=== PATIENT | male | born 2000 | race Caucasian/White ===

== ENCOUNTER → 2019-01-28 | Outpatient (CLI) | payer OTHER ==
--- NOTE | 2019-01-28 16:30 | REP ---
LEFT KNEE, FIVE VIEWS: HISTORY: Injury. There is no acute fracture or dislocation. The joint spaces are normal in appearance. IMPRESSION: There is no acute fracture or dislocation. Electronically Signed by Gilberto Goyal MD 01/28/2019 05:16 P
== END ==
LOC: M LRY 15:37
PROVIDERS: ATTEND Physician Assistant
DX: S89.92XA Unspecified injury of left lower leg, initial encounter (principal); X58.XXXA Exposure to other specified factors, initial encounter; Z92.89 Personal history of other medical treatment

== ENCOUNTER 2019-03-26 06:33 | Emergency (ER) | payer OTHER ==
[~2019-03-26] VITALS: Ht 172.7 cm; Wt 77.3 kg
[2019-03-26] MEDS ORDERED: NS 1,000 ML IV ONE (07:00)
--- NOTE | 2019-03-26 07:31 | REPVR ---
EXAM: CT Head Without Contrast EXAM DATE/TIME: 03/26/2019 7:12 AM CLINICAL HISTORY: 18 years old, male; Pain; Other: Headache, tingling in hands, weakness; Additional info: Headache; Reported tingling in hands; Reported weakness TECHNIQUE: Imaging protocol: Axial computed tomography images of the head/brain without contrast. Radiation optimization: All CT scans at this facility use at least one of these dose optimization techniques: automated exposure control; mA and/or kV adjustment per patient size (includes targeted exams where dose is matched to clinical indication); or iterative reconstruction. COMPARISON: No relevant prior studies available. FINDINGS: Brain: Normal. No hemorrhage. No significant white matter disease. No edema. Ventricles: Normal. No ventriculomegaly. Bones/joints: Unremarkable. No acute fracture. Sinuses: Visualized sinuses are unremarkable. No acute sinusitis. Mastoid air cells: Visualized mastoid air cells are unremarkable. No mastoid effusion. Soft tissues: Unremarkable. IMPRESSION: No acute intracranial abnormality. Electronically signed by: Anthony Phillips On 03/26/2019 07:31:26 AM
[2019-03-26 07:45] VITALS: BP 125/60
[2019-03-26 07:46] LABS: BASO % 0.3 % (0.0-1.0); EOS # 0.1 10^3/uL (0.0-0.50); EOS % 1.6 % (0.0-3.0); HEMATOCRIT 43.6 % (42.0-52.0); HEMOGLOBIN 15.2 g/dl (13.5-17.5); LYMPH # 1.4 10^3/uL (1.5-6.5); LYMPH % 20.2 % (24.0-44.0); MEAN CORPUSCULAR HEMOGLOBIN 29.9 pg (27.0-33.0); MEAN CORPUSCULAR HGB CONC 34.9 g/dl (32.0-36.5); MEAN CORPUSCULAR VOLUME 85.8 fl (80.0-96.0); MONO # 0.6 10^3/uL (0.0-0.8); MONO % 8.9 % (0.0-5.0); NEUTROPHILS # 4.7 10^3/uL (1.8-7.7); NEUTROPHILS % 68.9 % (36.0-66.0); PLATELET COUNT, AUTOMATED 217 10^3/uL (150-450); RED BLOOD COUNT 5.08 10^6/uL (4.30-6.10); WHITE BLOOD COUNT 6.9 10^3/uL (4.0-10.0)
--- NOTE | 2019-03-26 07:57 | ECGEPIP ---
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
--- NOTE | 2019-03-26 07:59 | REP ---
Clinical: Acute chest pain . Comparison: None . Technique: PA and lateral. Findings: The mediastinum and cardiac silhouette are normal. The lung dahl are clear and without acute consolidation, effusion, or pneumothorax. The skeletal structures are intact and normal. Impression: 1. No acute cardiopulmonary process. Electronically Signed by Silvano Hunt MD 03/26/2019 07:51 A
[2019-03-26 08:22] LABS: ALBUMIN 4.1 GM/DL (3.2-5.2); ALT/SGPT 78 U/L (12-78); BILIRUBIN,DIRECT 0.2 MG/DL (0.0-0.2); BILIRUBIN,TOTAL 0.6 MG/DL (0.2-1.0); BLOOD UREA NITROGEN 11 MG/DL (7-18); CALCIUM LEVEL 8.8 MG/DL (8.5-10.1); CARBON DIOXIDE LEVEL 27 MEQ/L (21-32); CHLORIDE LEVEL 107 MEQ/L (98-107); CPK CREATINE PHOSPHOKINASE 104 U/L (39-308); CREATININE FOR GFR 0.77 MG/DL (0.70-1.30); FREE T4 0.98 NG/DL (0.78-1.33); GLUCOSE, FASTING 94 MG/DL (70-100); LIPASE 136 U/L (73-393); MB/CK RELATIVE INDEX 1.35 (< OR =4); NT-PRO BNP 10 PG/ML (<125); SODIUM LEVEL 139 MEQ/L (136-145); TROPONIN I < 0.02 NG/ML (< 0.10)
== END 2019-03-26 09:29 | disposition home or self-care (01) ==
LOC: M ED 06:33
DX: R07.9 Chest pain, unspecified (principal); F41.9 Anxiety disorder, unspecified

== ENCOUNTER 2019-04-22 14:14 | Emergency (ER) | payer OTHER ==
[~2019-04-22] VITALS: Ht 170.2 cm; Wt 79.8 kg
[2019-04-22] MEDS ORDERED: ONDANSETRON 4 MG ORAL DISINTEGRATING TAB (Q0162 PER 1MG) PO ONE (15:00)
[2019-04-22] MEDS ORDERED: METOCLOPRAMIDE INJ 10MG/2ML VIAL (J2765) IV ONE (15:15)
[2019-04-22] MEDS ORDERED: NS 1,000 ML IV ONE (15:15)
[2019-04-22 15:42] LABS: BASO % 0.6 % (0.0-1.0); EOS # 0.1 10^3/uL (0.0-0.50); EOS % 2.7 % (0.0-3.0); HEMATOCRIT 41.7 % (42.0-52.0); LYMPH # 2.2 10^3/uL (1.5-6.5); LYMPH % 41.7 % (24.0-44.0); MEAN CORPUSCULAR HEMOGLOBIN 31.2 pg (27.0-33.0); MEAN CORPUSCULAR VOLUME 86.7 fl (80.0-96.0); MONO # 0.4 10^3/uL (0.0-0.8); MONO % 8.5 % (0.0-5.0); NEUTROPHILS # 2.4 10^3/uL (1.8-7.7); NEUTROPHILS % 46.3 % (36.0-66.0); PLATELET COUNT, AUTOMATED 237 10^3/uL (150-450); RED BLOOD COUNT 4.81 10^6/uL (4.30-6.10); WHITE BLOOD COUNT 5.2 10^3/uL (4.0-10.0)
[2019-04-22] MEDS: GASTROGRAFIN SOLUTION 30ML PO SCH ×2 (15:59→16:23)
[2019-04-22] MEDS ORDERED: ISOVUE-370 76% 100ML VIAL (Q9967) As Ordered ONE (16:48)
[2019-04-22 17:03] LABS: ALBUMIN 3.9 GM/DL (3.2-5.2); ALT/SGPT 44 U/L (12-78); BILIRUBIN,TOTAL 0.3 MG/DL (0.2-1.0); BLOOD UREA NITROGEN 11 MG/DL (7-18); CALCIUM LEVEL 8.6 MG/DL (8.5-10.1); CARBON DIOXIDE LEVEL 29 MEQ/L (21-32); CHLORIDE LEVEL 106 MEQ/L (98-107); CREATININE FOR GFR 0.78 MG/DL (0.70-1.30); GLUCOSE, FASTING 101 MG/DL (70-100); LIPASE 82 U/L (73-393); POTASSIUM SERUM 3.7 MEQ/L (3.5-5.1); SODIUM LEVEL 140 MEQ/L (136-145); TOTAL PROTEIN 7.3 GM/DL (6.4-8.2)
[2019-04-22] MEDS ORDERED: ONDANSETRON 4MG/2ML VIAL (J2405) IV ONE (17:15)
[2019-04-22] MEDS ORDERED: MORPHINE 4 MG/ML 1ML VIAL/SYRINGE (J2270) IV ONE (17:15)
[2019-04-22] MEDS ORDERED: CARA1TAB6 PO (17:59)
[2019-04-22] MEDS ORDERED: OMEP10CASR PO (17:59)
[2019-04-22] MEDS ORDERED: ZOFR4TAB16 PO (18:00)
[2019-04-22] MEDS ORDERED: SUCRALFATE 1 GM TAB PO ONE (18:15)
[2019-04-22] MEDS ORDERED: OMEPRAZOLE 20 MG CAP PO ONE (18:15)
--- NOTE | 2019-04-22 18:24 | REP ---
REASON: Hematemesis. PRIORS: None. CONTRAST: 100 mL Isovue-370. The lung bases are clear. The liver, gallbladder, spleen, pancreas, adrenal glands and kidneys are normal. The abdominal aorta and paraaortic regions are within normal limits. The bowel loops and their mesenteries are within normal limits. There is no free fluid or free air. There is no intraabdominal mass or adenopathy. Multiple non-enlarged mesenteric lymph nodes are present. CT PELVIS: The bowel loops and their mesenteries are within normal limits. There is no mass or adenopathy. There is no free fluid or free air. Bone window technique throughout the examination shows the osseous structures to be within normal limits. IMPRESSION: CT findings are within normal limits. Electronically Signed by Payam Swanson DO 04/22/2019 07:45 P
[2019-04-22 18:26] VITALS: BP 132/68
== END 2019-04-22 18:27 | disposition home or self-care (01) ==
LOC: M ED 14:14
DX: K92.0 Hematemesis (principal)
CPT/HCPCS: 74177; 80053; 83690; 85025; 87880; 96361; 96374; 99284; J2765; Q0162; Q9963; Q9967

== ENCOUNTER 2019-06-05 16:33 | Emergency (ER) | payer OTHER ==
[~2019-06-05] VITALS: Ht 172.7 cm; Wt 77.3 kg
[~2019-06-05 16:33] MED LIST: CARA1TAB6 PO; OMEP10CASR PO; ZOFR4TAB16 PO
[2019-06-05 19:16] VITALS: BP 129/62
== END 2019-06-05 19:32 | disposition home or self-care (01) ==
LOC: M ED 16:33 → EDBD 16:33 → M ED 19:32
DX: F41.9 Anxiety disorder, unspecified (principal); K21.9 Gastro-esophageal reflux disease without esophagitis

== ENCOUNTER → 2019-06-12 | Outpatient (CLI) | payer OTHER ==
[~2019-06-12] MED LIST changes: +EEG
--- NOTE | 2019-06-12 14:47 | REPVR ---
EXAM: MR Cervical Spine Without Contrast EXAM DATE/TIME: 06/12/2019 12:22 PM CLINICAL HISTORY: 18 years old, male; Disturbance of skin sensation; Anesthesia of skin TECHNIQUE: Imaging protocol: Multiplanar magnetic resonance images of the cervical spine without contrast. COMPARISON: No relevant prior studies available. FINDINGS: Vertebral body heights are intact. Alignment is maintained. The cervicomedullary junction appears unremarkable. The spinal cord appears normal in signal. There are mild degrees of disc desiccation indicating intervertebral disc degeneration. There is a 7 mm hemangioma posteriorly in the C6 vertebral body. The partially included adenoids appear prominent. C2-3: Small osteophytic ridge leading to very mild right neural foraminal narrowing without significant spinal stenosis. C3-4: Small disc bulge leading to mild bilateral neural foraminal narrowing without significant spinal stenosis. C4-5: Small disc osteophyte complex leading to very mild right and mild left neural foraminal narrowing without significant spinal stenosis. C5-6: Small disc osteophyte complex with a central annular tear leading to mild right and very mild left neural foraminal narrowing without significant spinal stenosis. C6-7: Small disc bulge leading to very mild left neural foraminal narrowing without significant spinal stenosis. C7-T1: No significant disc displacement. If surgery is considered, recommend level confirmation. IMPRESSION: Mild multilevel disc desiccation indicating intervertebral disk degeneration with small disc displacements as described. Electronically signed by: Alexander Abdul On 06/12/2019 14:47:33 PM
--- NOTE | 2019-06-12 14:51 | REPVR ---
EXAM: MR Head Without Contrast EXAM DATE/TIME: 06/12/2019 12:21 PM CLINICAL HISTORY: 18 years old, male; Numbness / parasthesia; Bilateral; Patient HX: C5 c6 c7 dermatome; Additional info: Anesthesia and intermttant urinary incontinence TECHNIQUE: Imaging protocol: MR of the head without contrast. COMPARISON: CT Head without contrast 03/26/2019 7:05 AM FINDINGS: Brain: The diffusion weighted images demonstrate no evidence for acute infarct. The cerebellar tonsils are normal in position. The major intracranial vascular flow voids appear grossly patent. No intracranial hemorrhage or extraaxial collection is identified. There is no significant intracranial mass effect, and no mass is identified. There is no significant white matter disease. Ventricles: The ventricles and sulci are stable in configuration. Bones/joints: Unremarkable. Soft tissues: Normal. Sinuses: Normal as visualized. No acute sinusitis. Mastoid air cells: Normal as visualized. No mastoid effusion. Orbits: Unremarkable. Nasopharynx: The adenoids appear prominent. IMPRESSION: 1. No significant abnormality. 2. Prominent appearance of the adenoids. Electronically signed by: Alexander Abdul On 06/12/2019 14:51:03 PM
== END ==
LOC: M RAD 12:13
PROVIDERS: ATTEND General Practice
DX: M47.12 Other spondylosis with myelopathy, cervical region (principal); M50.20 Other cervical disc displacement, unspecified cervical region; M50.30 Other cervical disc degeneration, unspecified cervical region

== ENCOUNTER 2019-06-24 08:00 | Emergency (ER) | payer OTHER ==
[~2019-06-24] VITALS: Ht 170.2 cm; Wt 77.3 kg
[~2019-06-24 08:00] MED LIST changes: -EEG
[2019-06-24 08:29] LABS: VENOUS BASE EXCESS -1.7 (-2.0-2.0); VENOUS HCO3 23.7 MEQ/L (23.0-27.0); VENOUS O2 SATURATION 93.4 % (60.0-80.0); VENOUS PARTIAL PRESSURE CO2 42.4 mmHg (38.0-50.0); VENOUS PARTIAL PRESSURE O2 68.1 mmHg (30.0-50.0); VENOUS PH 7.365 UNITS (7.330-7.430)
[2019-06-24 08:39] LABS: BASO % 0.6 % (0.0-1.0); EOS # 0.1 10^3/uL (0.0-0.50); EOS % 1.9 % (0.0-3.0); HEMATOCRIT 43.7 % (42.0-52.0); HEMOGLOBIN 15.6 g/dl (13.5-17.5); LYMPH # 1.4 10^3/uL (1.5-6.5); LYMPH % 29.4 % (24.0-44.0); MEAN CORPUSCULAR HEMOGLOBIN 30.8 pg (27.0-33.0); MEAN CORPUSCULAR HGB CONC 35.7 g/dl (32.0-36.5); MEAN CORPUSCULAR VOLUME 86.4 fl (80.0-96.0); MONO # 0.5 10^3/uL (0.0-0.8); MONO % 9.6 % (0.0-5.0); NEUTROPHILS # 2.7 10^3/uL (1.8-7.7); NEUTROPHILS % 58.3 % (36.0-66.0); PLATELET COUNT, AUTOMATED 195 10^3/uL (150-450); RED BLOOD COUNT 5.06 10^6/uL (4.30-6.10); WHITE BLOOD COUNT 4.7 10^3/uL (4.0-10.0)
--- NOTE | 2019-06-24 08:57 | REP ---
Clinical: Trauma . Comparison: 03/26/2019 . Findings: The ventricles, sulci, and cisterns are normal in position and appearance. Alex-white differentiation is maintained. No acute intracranial hemorrhage, mass/mass effect, pathology or trauma/injury. No evidence for acute infarction. No extra-axial fluid collection. Calvarium is intact. Paranasal sinuses and mastoid air cells are clear. Impression: Normal noncontrast head CT. No evidence for acute intracranial pathology or trauma/injury. Electronically Signed by Silvano Hunt MD 06/24/2019 08:48 A
--- NOTE | 2019-06-24 08:58 | REP ---
Clinical: Trauma . Technique: Axial noncontrast images from the skull base to the thoracic inlet with coronal and sagittal re-formations Findings: Normal alignment and lordosis is maintained. Cervical vertebral bodies including transverse processes and spinous processes are intact and there is no evidence for acute fracture / compression injury or subluxation. Spinal canal is patent. Posterior elements are intact. Paravertebral soft tissues are normal. Impression: Normal noncontrast cervical spine CT. No evidence for acute pathology or trauma/injury. Electronically Signed by Silvano Hunt MD 06/24/2019 08:50 A
[2019-06-24 09:03] LABS: ACETAMINOPHEN LEVEL < 2.0 UG/ML (10.0-30.0); ALBUMIN 3.9 GM/DL (3.2-5.2); ALT/SGPT 50 U/L (12-78); BILIRUBIN,DIRECT 0.1 MG/DL (0.0-0.2); BILIRUBIN,TOTAL 0.5 MG/DL (0.2-1.0); BLOOD UREA NITROGEN 10 MG/DL (7-18); CALCIUM LEVEL 8.9 MG/DL (8.5-10.1); CARBON DIOXIDE LEVEL 27 MEQ/L (21-32); CHLORIDE LEVEL 109 MEQ/L (98-107); CPK CREATINE PHOSPHOKINASE 75 U/L (39-308); CREATININE FOR GFR 0.73 MG/DL (0.70-1.30); ETHYL ALCOHOL (ETHANOL) 0.005 % (0.000-0.010); GLUCOSE, FASTING 91 MG/DL (70-100); POTASSIUM SERUM 3.9 MEQ/L (3.5-5.1); SALICYLATE LEVEL < 1.7 MG/DL (5.0-30.0); SODIUM LEVEL 139 MEQ/L (136-145); TOTAL PROTEIN 6.9 GM/DL (6.4-8.2)
[2019-06-24 09:45] VITALS: BP 132/60
[2019-06-24 10:30] LABS: PROLACTIN 5.7 NG/ML (2.1-17.7)
[2019-06-24] MEDS ORDERED: EEG ×2 (10:50→11:16)
[2019-06-24 11:22] LABS: AMPHETAMINES LEVEL URINE NEGATIVE (NEGATIVE); BARBITURATES URINE NEGATIVE (NEGATIVE); BENZODIAZEPINES URINE NEGATIVE (NEGATIVE); CANNABINOIDS URINE NEGATIVE (NEGATIVE); COCAINE METABOLITE URINE NEGATIVE (NEGATIVE); METHADONE URINE NEGATIVE (NEGATIVE); OPIATES URINE NEGATIVE (NEGATIVE); PHENCYCLIDINE URINE NEGATIVE (NEGATIVE)
--- NOTE | 2019-06-26 07:28 | ECGEPIP ---
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
== END 2019-06-24 10:59 | disposition home or self-care (01) ==
LOC: M ED 08:00
DX: S00.81XA Abrasion of other part of head, initial encounter (principal); X58.XXXA Exposure to other specified factors, initial encounter; Y92.138 Other place on military base as the place of occurrence of the external cause; M54.9 Dorsalgia, unspecified; G89.29 Other chronic pain
CPT/HCPCS: 70450; 72125; 80048; 80076; 80307; 82550; 82803; 84146; 84443; 85025; 93005; 93041; 99285; G0480

== ENCOUNTER 2019-07-07 20:41 | Emergency (ER) | payer OTHER ==
[~2019-07-07] VITALS: Ht 172.7 cm; Wt 81.5 kg
[~2019-07-07 20:41] MED LIST changes: +EEG
[2019-07-07 21:21] LABS: BASO % 0.5 % (0.0-1.0); EOS # 0.1 10^3/uL (0.0-0.50); EOS % 2.1 % (0.0-3.0); HEMATOCRIT 40.6 % (42.0-52.0); HEMOGLOBIN 14.6 g/dl (13.5-17.5); LYMPH % 35.7 % (24.0-44.0); MEAN CORPUSCULAR VOLUME 86.2 fl (80.0-96.0); MONO # 0.6 10^3/uL (0.0-0.8); MONO % 9.7 % (0.0-5.0); NEUTROPHILS % 51.8 % (36.0-66.0); PLATELET COUNT, AUTOMATED 229 10^3/uL (150-450); RED BLOOD COUNT 4.71 10^6/uL (4.30-6.10); WHITE BLOOD COUNT 5.7 10^3/uL (4.0-10.0)
[2019-07-07 21:58] LABS: BLOOD UREA NITROGEN 14 MG/DL (7-18); CALCIUM LEVEL 8.4 MG/DL (8.5-10.1); CARBON DIOXIDE LEVEL 26 MEQ/L (21-32); CHLORIDE LEVEL 109 MEQ/L (98-107); CK-MB VALUE MASS 1.8 NG/ML (<3.6); CPK CREATINE PHOSPHOKINASE 124 U/L (39-308); CREATININE FOR GFR 0.73 MG/DL (0.70-1.30); GLUCOSE, FASTING 105 MG/DL (70-100); MAGNESIUM LEVEL 2.3 MG/DL (1.8-2.4); MB/CK RELATIVE INDEX 1.45 (< OR =4); POTASSIUM SERUM 3.8 MEQ/L (3.5-5.1); SODIUM LEVEL 142 MEQ/L (136-145); TROPONIN I < 0.02 NG/ML (< 0.10)
--- NOTE | 2019-07-07 22:10 | REPVR ---
EXAM: CT Head Without Contrast EXAM DATE/TIME: 07/07/2019 9:46 PM CLINICAL HISTORY: 18 years old, male; Syncope and collapse TECHNIQUE: Imaging protocol: Computed tomography images of the head without contrast. Radiation optimization: All CT scans at this facility use at least one of these dose optimization techniques: automated exposure control; mA and/or kV adjustment per patient size (includes targeted exams where dose is matched to clinical indication); or iterative reconstruction. COMPARISON: CT Head without contrast 06/24/2019 8:21 AM FINDINGS: Brain: Normal. No hemorrhage. Unremarkable white matter. No mass effect. Ventricles: Normal. No ventriculomegaly. Bones/joints: Unremarkable. No acute fracture. Sinuses: Visualized sinuses are unremarkable. No fluid levels. Mastoid air cells: Visualized mastoid air cells are well aerated. No mastoid effusion. Soft tissues: Unremarkable. IMPRESSION: Negative noncontrast head CT without change from 06/24/2019. Electronically signed by: Mario Chaudhary On 07/07/2019 22:09:51 PM
--- NOTE | 2019-07-07 22:13 | REPVR ---
EXAM: CT Cervical Spine Without Contrast EXAM DATE/TIME: 07/07/2019 9:46 PM CLINICAL HISTORY: 18 years old, male; Injury or trauma; Fall; Initial encounter; Blunt trauma; Additional info: Syncope TECHNIQUE: Imaging protocol: Computed tomography images of the cervical spine without contrast. Radiation optimization: All CT scans at this facility use at least one of these dose optimization techniques: automated exposure control; mA and/or kV adjustment per patient size (includes targeted exams where dose is matched to clinical indication); or iterative reconstruction. COMPARISON: CT Spine,cervical w/o contrast 06/24/2019 8:21 AM FINDINGS: Vertebrae: No acute fracture. Normal alignment. Discs/Spinal canal/Neural foramina: No spinal stenosis. No neural foraminal narrowing. Soft tissues: Unremarkable. Lungs: Lung apices are normal. IMPRESSION: Negative CT cervical spine. No fracture or subluxation is evident and no spinal or foraminal stenosis. Electronically signed by: Mario Chaudhary On 07/07/2019 22:12:37 PM
--- NOTE | 2019-07-07 22:15 | REPVR ---
EXAM: CT Lumbar Spine Without Contrast EXAM DATE/TIME: 07/07/2019 9:46 PM CLINICAL HISTORY: 18 years old, male; Injury or trauma; Fall; Initial encounter; Blunt trauma (contusions or hematomas); Additional info: Fall, midline tenderness TECHNIQUE: Imaging protocol: Computed tomography images of the lumbar spine without contrast. Radiation optimization: All CT scans at this facility use at least one of these dose optimization techniques: automated exposure control; mA and/or kV adjustment per patient size (includes targeted exams where dose is matched to clinical indication); or iterative reconstruction. COMPARISON: No relevant prior studies available. FINDINGS: Vertebrae: No acute fracture. Normal alignment. Discs/Spinal canal/Neural foramina: No spinal stenosis. No neural foraminal narrowing. Gallbladder and bile ducts: The gallbladder is contracted with no stones. Soft tissues: Unremarkable. IMPRESSION: Negative CT lumbar spine. No fracture or subluxation is evident and no spinal or foraminal stenosis. Electronically signed by: Mario Chaudhary On 07/07/2019 22:14:46 PM
[2019-07-07 23:46] VITALS: BP 126/59
--- NOTE | 2019-07-08 13:39 | ECGEPIP ---
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
== END 2019-07-08 00:31 | disposition home or self-care (01) ==
LOC: M ED 20:41
DX: R06.4 Hyperventilation (principal); R55 Syncope and collapse; R00.1 Bradycardia, unspecified; F41.1 Generalized anxiety disorder